=== PATIENT | female | born 1990 | race Two or more races ===

== ENCOUNTER 2023-09-22 16:51 | Emergency (ER) | payer MEDICAID, OTHER ==
[~2023-09-22] VITALS: Ht 165.1 cm; Wt 84.7 kg
[2023-09-22 17:34] VITALS: BP 135/92; PULSE 99; RESP 18; O2SAT 97
[2023-09-22 18:40] LABS: Urine Amorphous Crystal FEW /hpf (None Seen); Urine Bacteria FEW /hpf (None Seen); Urine Blood Negative /uL (Negative); Urine Clarity CLOUDY (Clear); Urine Color Yellow (Yellow); Urine Mucus MANY (None Seen); Urine Protein, UAD 1+ (Negative); Urine WBC 113 /hpf (0 - 5); Urine pH 5.5 (5.0-8.0)
[2023-09-22 21:33] LABS: Rapid Influenza A Negative (Negative); Rapid Influenza B Negative (Negative)
[2023-09-22 21:34] LABS: COVID19 ANTIGEN SOFIA FIA NEGATIVE (NEGATIVE)
== END 2023-09-22 23:50 | disposition left against medical advice (07) ==
LOC: ER 16:51
DX: R05.9 Cough, unspecified (principal); R09.81 Nasal congestion; R50.9 Fever, unspecified; Z53.21 Procedure and treatment not carried out due to patient leaving prior to being seen by health care provider; Z20.822 Contact with and (suspected) exposure to COVID-19
CPT/HCPCS: 36415; 81001; 81025; 87426; 87804